=== PATIENT | female | born 1985 | race Two or more races ===

== ENCOUNTER 2024-02-26 22:50 | Inpatient (IN) | payer MEDICAID, OTHER ==
[~2024-02-26] VITALS: Ht 157.5 cm; Wt 64.6 kg
[2024-02-26 23:30] LABS: Eosinophils # (auto) 0.2 10 ^3/uL (0-0.8); Mean Corpuscular Hemoglobin 36.5 pg (28.0-32.0); Monocytes # (auto) 0.9 10 ^3/uL (0-1.3); Platelet Count (auto) 98 10^3/uL (140-450)
[2024-02-26 23:31] LABS: Basophils # (auto) 0 10 ^3/uL (0-0.2); Basophils % (auto) 0.4 % (0.0-2.0); Hematocrit 30.9 % (36.0-46.0); Hemoglobin 10.6 g/dL (12.2-16.2); Lymphocytes # (auto) 1.1 10 ^3/uL (0.4-5.4); Lymphocytes % (auto) 11.2 % (10.0-50.0); Mean Corpuscular Hgb Conc. 34.2 g/dL (32.0-36.0); Mean Corpuscular Volume 106.6 fL (80.0-100.0); Monocytes % (auto) 8.6 % (0.0-12.0); Neutrophils % (auto) 77.8 % (37.0-80.0); Red Cell Distribution Width 15.2 % (11.8-14.3); White Blood Cell 10.3 10^3/uL (4.4-10.8)
[2024-02-26 23:44] LABS: INR 1.59 (0.9-1.15); Partial Thromboplastin Time 33.4 SEC (24.5-34.5); Prothrombin Time 16.3 sec (9.3-11.8)
[2024-02-26 23:47] LABS: Alanine Aminotransferase 30 U/L (7-40); Albumin 3.1 g/dL (3.2-4.8); Alkaline Phosphatase 91 U/L (46-116); Anion Gap 4 (5-15); Aspartate Aminotransferase 104 U/L (13-40); BUN/Creatinine Ratio 10.8 (10.0-20.0); Bilirubin, Total 7.2 mg/dL (0.2-1.0); Blood Alcohol < 3.0 mg/dL (<10); Blood Urea Nitrogen 8 mg/dL (9-23); Carbon Dioxide 28 mmol/L (20-31); Chloride 106 mmol/L (98-107); Glucose 120 mg/dL (74-106); Sodium 138 mmol/L (136-145); Total Protein 7.2 g/dL (5.7-8.2)
[2024-02-27] MEDS: ONDANSETRON HCL 4 MG/2 ML VIAL IV ONE (00:59)
[2024-02-27] MEDS: PANTOPRAZOLE 40 MG/10 ML VIAL INJ IV ONE (01:01)
[2024-02-27] MEDS: MORPHINE SULFATE 4 MG/ML SYR/VIAL IV ONE (01:01)
[2024-02-27 08:59] LABS: Amphetamine Screen, Urine Neg (NEGATIVE); Benzodiazephine Screen, Urine Neg (NEGATIVE)
[2024-02-27 09:00] LABS: Barbiturate Scree,Urine Neg (NEGATIVE); Cannabinoid Screen, Urine Pos (NEGATIVE); Cocaine Screen, Urine Neg (NEGATIVE); Opiate Scree,Urine Pos (NEGATIVE); Phencyclidine Screen, Urine Neg (NEGATIVE)
[2024-02-27 09:36] LABS: Lymphocytes # (auto) 1.3 10 ^3/uL (0.4-5.4); Monocytes # (auto) 0.8 10 ^3/uL (0-1.3); Nucleated Red Blood Cells % 0.1 %
[2024-02-27 09:38] LABS: Basophils # (auto) 0 10 ^3/uL (0-0.2); Basophils % (auto) 0.4 % (0.0-2.0); Eosinophils # (auto) 0.2 10 ^3/uL (0-0.8); Eosinophils % (auto) 2.9 % (0.0-7.0); Hemoglobin 10.6 g/dL (12.2-16.2); Lymphocytes % (auto) 15.7 % (10.0-50.0); Mean Corpuscular Hemoglobin 37.7 pg (28.0-32.0); Mean Corpuscular Hgb Conc. 35.2 g/dL (32.0-36.0); Mean Corpuscular Volume 107.2 fL (80.0-100.0); Monocytes % (auto) 9.8 % (0.0-12.0); Neutrophils % (auto) 71.2 % (37.0-80.0); Platelet Count (auto) 90 10^3/uL (140-450); Red Cell Distribution Width 15.4 % (11.8-14.3); White Blood Cell 8.4 10^3/uL (4.4-10.8)
[2024-02-27 09:43] LABS: Chloride 106 mmol/L (98-107); Potassium 4.2 mmol/L (3.5-5.1); Sodium 138 mmol/L (136-145)
[2024-02-27 09:44] LABS: Anion Gap 4 (5-15); Calcium 8.8 mg/dL (8.7-10.4); Carbon Dioxide 28 mmol/L (20-31)
[2024-02-27 09:49] LABS: BUN/Creatinine Ratio 9.8 (10.0-20.0); Blood Urea Nitrogen 6 mg/dL (9-23); Glucose 83 mg/dL (74-106)
[2024-02-27] MEDS: PANTOPRAZOLE 40 MG/10 ML VIAL INJ IV SCH (10:19)
[2024-02-27] MEDS: SODIUM CHLORIDE 0.9% 1,000 ML IV SCH (11:51)
[2024-02-27] MEDS: SODIUM CHLORIDE 0.9% 1,000 ML IV ONE (11:51)
[2024-02-27] MEDS: ALBUMIN 25% 50 ML IV ONE (11:52)
[2024-02-27] MEDS: HYDROCORTISONE ACET 25 MG RECTAL SUPP PR ONE (14:09)
[2024-02-27] MEDS: DOCUSATE SOD 100 MG CAP PO ONE (14:09)
[2024-02-27] MEDS: MORPHINE SULFATE INJ 2 MG/ml SYRG IV PRN (14:50)
[2024-02-27] MEDS: ONDANSETRON HCL 4 MG/2 ML VIAL IV PRN (14:50)
[2024-02-27 15:45] VITALS: PULSE 75; RESP 16; O2SAT 98
[2024-02-27 15:55] VITALS: BP 99/48; PULSE 75; TEMP 98.2; O2SAT 98
[2024-02-27 17:36] VITALS: BP 99/48; PULSE 75; RESP 16; TEMP 98.2; O2SAT 98
[2024-02-27 20:09] LABS: Body Fluid Red Blood Cells 223 CUMM (0-2000); Body Fluid White Blood Cells 233 CUMM (0-200)
[2024-02-27 20:10] LABS: Body Fluid Polymorphonuclear 5 % (0-25)
[2024-02-27 21:00] VITALS: BP 101/56; PULSE 75; RESP 19; TEMP 98.1; O2SAT 98
[2024-02-27] MEDS: HYDROCORTISONE ACET 25 MG RECTAL SUPP PR SCH (22:04)
[2024-02-28 05:00] VITALS: BP 100/54; PULSE 48; RESP 18; TEMP 97.8; O2SAT 100
[2024-02-28 09:26] VITALS: BP 103/59; PULSE 64; RESP 16; TEMP 98.2; O2SAT 96
[2024-02-28 11:07] LABS: Protein, Body Fluid 1.9 g/dL (.)
[2024-02-28 13:40] VITALS: BP 105/59; PULSE 77; RESP 16; TEMP 97.9; O2SAT 99
[2024-02-28] MEDS: LIDOCAINE HCL 5 % TOP OINT 35 GM TOP PRN (15:52)
[2024-02-28 17:00] VITALS: BP 102/60; PULSE 75; RESP 18; TEMP 97.8; O2SAT 98
[2024-02-28 21:58] VITALS: BP 97/58; PULSE 89; RESP 18; TEMP 98.3; O2SAT 99
[2024-02-29 01:15] VITALS: BP 102/55; PULSE 77; RESP 18; TEMP 98.1; O2SAT 98
[2024-02-29 05:22] VITALS: BP 93/51; PULSE 69; RESP 19; TEMP 98.3; O2SAT 96
[2024-02-29 09:00] VITALS: BP 104/61; PULSE 80; RESP 20; TEMP 98; O2SAT 100
[2024-02-29] MEDS ORDERED: LID35TP TOP (12:42)
[2024-02-29] MEDS ORDERED: HYD25RS PR (12:42)
[2024-02-29 13:00] VITALS: BP 138/61; PULSE 82; RESP 20; TEMP 98.2; O2SAT 99
[2024-02-29 14:31] VITALS: BP 93/62; PULSE 82; RESP 20; TEMP 98.2; O2SAT 99
== END 2024-02-29 15:42 | disposition home or self-care (01) | DRG 254 ==
LOC: ER 22:50 → EDBD 22:50 → OVERFLOW 02-27 08:45 → CENTRAL 02-27 15:22
PROVIDERS: ADMIT Internal Medicine; ATTEND Internal Medicine
PROC: 0W9G3ZZ Drainage of Peritoneal Cavity, Percutaneous Approach (ICD-10-PCS; principal; 2024-02-27)
DX: K64.8 Other hemorrhoids (principal); D68.9 Coagulation defect, unspecified; K76.6 Portal hypertension; K92.2 Gastrointestinal hemorrhage, unspecified; R18.8 Other ascites; K74.60 Unspecified cirrhosis of liver; F12.10 Cannabis abuse, uncomplicated; K59.00 Constipation, unspecified; Z79.899 Other long term (current) drug therapy
CPT/HCPCS: 36415; 49083; 76942; 80048; 80053; 80307; 80320; 82140; 83605; 83986; 84702; 85025; 85610; 85730; 87205; 89051; G0378; J2405; J2470

== ENCOUNTER 2024-03-01 12:44 | Inpatient (IN) | payer MEDICAID ==
[~2024-03-01] VITALS: Ht 157.5 cm; Wt 67.2 kg
[~2024-03-01 12:44] MED LIST: HYD25RS PR; LID35TP TOP
[2024-03-01 15:40] LABS: Basophils # (auto) 0.1 10 ^3/uL (0-0.2); Eosinophils % (auto) 1.5 % (0.0-7.0); Hemoglobin 11.4 g/dL (12.2-16.2); Lymphocytes # (auto) 1.1 10 ^3/uL (0.4-5.4); Red Cell Distribution Width 15.6 % (11.8-14.3)
[2024-03-01 15:42] LABS: Basophils % (auto) 0.5 % (0.0-2.0); Eosinophils # (auto) 0.2 10 ^3/uL (0-0.8); Lymphocytes % (auto) 10.5 % (10.0-50.0); Mean Corpuscular Hemoglobin 36.4 pg (28.0-32.0); Mean Corpuscular Hgb Conc. 33.6 g/dL (32.0-36.0); Mean Corpuscular Volume 108.2 fL (80.0-100.0); Monocytes # (auto) 0.7 10 ^3/uL (0-1.3); Monocytes % (auto) 6.8 % (0.0-12.0); Neutrophils # (auto) 8.3 10 ^3/uL (1.6-8.6); Neutrophils % (auto) 80.7 % (37.0-80.0); Nucleated Red Blood Cells % 0.4 %; Platelet Count (auto) 119 10^3/uL (140-450); Red Blood Cells 3.14 10^6/uL (4.0-5.20); White Blood Cell 10.3 10^3/uL (4.4-10.8)
[2024-03-01 15:59] LABS: Alanine Aminotransferase 34 U/L (7-40); Albumin 3.2 g/dL (3.2-4.8); Alkaline Phosphatase 87 U/L (46-116); Anion Gap 5 (5-15); Aspartate Aminotransferase 102 U/L (13-40); Calcium 9.3 mg/dL (8.7-10.4); Carbon Dioxide 26 mmol/L (20-31); Chloride 108 mmol/L (98-107); Glucose 93 mg/dL (74-106); Potassium 4.8 mmol/L (3.5-5.1); Sodium 139 mmol/L (136-145)
[2024-03-01 16:00] LABS: Bilirubin, Total 7.8 mg/dL (0.2-1.0); Total Protein 7.3 g/dL (5.7-8.2)
[2024-03-01 16:01] LABS: BUN/Creatinine Ratio 6.7 (10.0-20.0); Blood Urea Nitrogen < 5 mg/dL (9-23)
[2024-03-01 16:18] LABS: INR 1.57 (0.9-1.15); Partial Thromboplastin Time 31.9 SEC (24.5-34.5); Prothrombin Time 16.1 sec (9.3-11.8)
[2024-03-01 17:29] LABS: Urine Bacteria None Seen /hpf (None Seen)
[2024-03-01] MEDS ORDERED: ONDANSETRON HCL 4 MG/2 ML VIAL IV PRN (18:00)
[2024-03-01] MEDS ORDERED: MORPHINE SULFATE INJ 2 MG/ml SYRG IV PRN (18:00)
[2024-03-01 18:11] VITALS: PULSE 65; RESP 17; O2SAT 98
[2024-03-01 18:58] LABS: Urine Blood Negative /uL (Negative); Urine Clarity Clear (Clear); Urine Color Yellow (Yellow); Urine Mucus FEW (None Seen); Urine Protein, UAD Negative (Negative); Urine Specific Gravity 1.007 (1.001-1.035); Urine Urobilinogen 2 mg/dL (Negative); Urine WBC 1 /hpf (0 - 5)
[2024-03-01 20:00] VITALS: RESP 16
[2024-03-01 22:00] VITALS: BP 106/68; PULSE 74; RESP 16; TEMP 98.2; O2SAT 98
[2024-03-01] MEDS: DOCUSATE SOD 100 MG CAP PO SCH (22:13)
[2024-03-01 23:00] VITALS: BP 106/68; PULSE 74; RESP 16; TEMP 98.2
[2024-03-01] MEDS: HYDROcodone-ACET 5/325MG TAB PO PRN (23:31)
[2024-03-02] VITALS (7 sets, daily range): BP systolic 83–98; BP diastolic 47–66; PULSE 68–85; RESP 16–18; TEMP 97.5–98.5; O2SAT 95–100
[2024-03-02] MEDS ORDERED: SPIR50TA5 PO (00:05)
[2024-03-02] MEDS ORDERED: PROP1TAB51 PO (00:05)
[2024-03-02] MEDS ORDERED: OMEP20TA PO (00:05)
[2024-03-02] MEDS ORDERED: FURO40TA4 PO (00:05)
[2024-03-02] MEDS: FUROSEMIDE 20 MG/2 ML VIAL IV SCH (06:00)
[2024-03-02] MEDS: PANTOPRAZOLE 40 MG TAB PO SCH (06:19)
[2024-03-02 06:48] LABS: Basophils # (auto) 0 10 ^3/uL (0-0.2); Eosinophils # (auto) 0.2 10 ^3/uL (0-0.8); Hematocrit 29.7 % (36.0-46.0); Hemoglobin 10.3 g/dL (12.2-16.2); Lymphocytes # (auto) 1.2 10 ^3/uL (0.4-5.4); Monocytes # (auto) 0.7 10 ^3/uL (0-1.3); Nucleated Red Blood Cells % 0.2 %
[2024-03-02 06:54] LABS: Basophils % (auto) 0.6 % (0.0-2.0); Lymphocytes % (auto) 15.8 % (10.0-50.0); Mean Corpuscular Hemoglobin 37.1 pg (28.0-32.0); Mean Corpuscular Hgb Conc. 34.7 g/dL (32.0-36.0); Mean Corpuscular Volume 106.9 fL (80.0-100.0); Monocytes % (auto) 9.3 % (0.0-12.0); Neutrophils # (auto) 5.5 10 ^3/uL (1.6-8.6); Neutrophils % (auto) 71.3 % (37.0-80.0); Platelet Count (auto) 93 10^3/uL (140-450); Red Blood Cells 2.78 10^6/uL (4.0-5.20); Red Cell Distribution Width 15.2 % (11.8-14.3); White Blood Cell 7.8 10^3/uL (4.4-10.8)
[2024-03-02] MEDS: FUROSEMIDE 40 MG/4 ML VIAL IV SCH (18:00)
[2024-03-02] MEDS: HYDROCORTISONE ACET 25 MG RECTAL SUPP PR SCH (21:42)
[2024-03-03 01:00] VITALS: BP 83/50; PULSE 83; RESP 17; TEMP 98.1; O2SAT 96
[2024-03-03 04:49] LABS: Basophils # (auto) 0 10 ^3/uL (0-0.2); Basophils % (auto) 0.3 % (0.0-2.0); Eosinophils # (auto) 0.2 10 ^3/uL (0-0.8); Eosinophils % (auto) 2.7 % (0.0-7.0); Hematocrit 29.1 % (36.0-46.0); Lymphocytes # (auto) 1.1 10 ^3/uL (0.4-5.4); Lymphocytes % (auto) 15.4 % (10.0-50.0); Mean Corpuscular Hemoglobin 36.8 pg (28.0-32.0); Mean Corpuscular Hgb Conc. 34.3 g/dL (32.0-36.0); Mean Corpuscular Volume 107.1 fL (80.0-100.0); Monocytes # (auto) 0.7 10 ^3/uL (0-1.3); Monocytes % (auto) 9.7 % (0.0-12.0); Neutrophils % (auto) 71.9 % (37.0-80.0); Platelet Count (auto) 87 10^3/uL (140-450); Red Blood Cells 2.72 10^6/uL (4.0-5.20); Red Cell Distribution Width 15.7 % (11.8-14.3); White Blood Cell 6.9 10^3/uL (4.4-10.8)
[2024-03-03 05:00] VITALS: BP 87/54; PULSE 80; RESP 18; TEMP 98.2; O2SAT 97
[2024-03-03 05:08] LABS: Anion Gap 7 (5-15); Carbon Dioxide 27 mmol/L (20-31); Chloride 109 mmol/L (98-107); Potassium 3.8 mmol/L (3.5-5.1); Sodium 143 mmol/L (136-145)
[2024-03-03 05:10] LABS: Calcium 8.9 mg/dL (8.7-10.4)
[2024-03-03 05:14] LABS: Glucose 99 mg/dL (74-106)
[2024-03-03 05:22] LABS: BUN/Creatinine Ratio 7.5 (10.0-20.0); Blood Urea Nitrogen < 5 mg/dL (9-23)
[2024-03-03 08:00] VITALS: RESP 18
[2024-03-03 08:36] VITALS: BP 86/55; PULSE 66; RESP 17; TEMP 97.7; O2SAT 95
[2024-03-03 09:13] LABS: Folate (Folic Acid) 4.5 ng/mL (>5.38)
[2024-03-03] MEDS ORDERED: FURO1TAB31 PO (11:59)
[2024-03-03 12:58] VITALS: BP 102/67; PULSE 74; RESP 18; TEMP 97.7; O2SAT 98
[2024-03-03 13:00] VITALS: BP 102/67; PULSE 74; RESP 17; TEMP 97.9; O2SAT 98
[2024-03-03] MEDS: ERGOCALCIFEROL 50,000 UNIT(1.25MG) CAP PO SCH (13:10)
[2024-03-03 14:18] LABS: Body Fluid Polymorphonuclear 18 % (0-25); Body Fluid Red Blood Cells 81 CUMM (0-2000); Body Fluid White Blood Cells 243 CUMM (0-200)
[2024-03-04 13:06] LABS: Protein, Body Fluid 1.4 g/dL (.)
== END 2024-03-03 13:50 | disposition home or self-care (01) ==
LOC: ER 12:51 → WEST WING 17:50 → OVERFLOW 17:50 → WEST WING 21:34
PROVIDERS: ADMIT Internal Medicine; ATTEND Internal Medicine
PROC: 0W9G3ZZ Drainage of Peritoneal Cavity, Percutaneous Approach (ICD-10-PCS; principal; 2024-03-03)
DX: K74.60 Unspecified cirrhosis of liver (principal); D68.9 Coagulation defect, unspecified; K76.6 Portal hypertension; F12.10 Cannabis abuse, uncomplicated; R18.8 Other ascites; K75.81 Nonalcoholic steatohepatitis (NASH); D53.9 Nutritional anemia, unspecified; E80.6 Other disorders of bilirubin metabolism; K64.9 Unspecified hemorrhoids
CPT/HCPCS: 36415; 49083; 74176; 76700; 80048; 80053; 81001; 82140; 82306; 82607; 82746; 83986; 85025; 85610; 85730; 87081; 87205; 89051; G0378

== ENCOUNTER → 2024-06-15 | Outpatient (CLI) | payer MEDICAID ==
[~2024-06-15] MED LIST changes: +FURO1TAB31 PO; +FURO40TA4 PO; +OMEP20TA PO; +PROP1TAB51 PO; +SPIR50TA5 PO
[2024-06-15 12:57] LABS: Urine Bacteria None Seen /hpf (None Seen)
[2024-06-15 13:17] LABS: Basophils # (auto) 0 10 ^3/uL (0-0.2); Basophils % (auto) 0.4 % (0.0-2.0); Eosinophils # (auto) 0 10 ^3/uL (0-0.8); Eosinophils % (auto) 1.4 % (0.0-7.0); Hemoglobin 12.5 g/dL (12.2-16.2); Lymphocytes % (auto) 31.3 % (10.0-50.0); Mean Corpuscular Hgb Conc. 33.7 g/dL (32.0-36.0); Mean Corpuscular Volume 95.1 fL (80.0-100.0); Monocytes # (auto) 0.2 10 ^3/uL (0-1.3); Monocytes % (auto) 6.8 % (0.0-12.0); Neutrophils # (auto) 1.9 10 ^3/uL (1.6-8.6); Neutrophils % (auto) 60.1 % (37.0-80.0); Nucleated Red Blood Cells % 0.3 %; Platelet Count (auto) 77 10^3/uL (140-450); Red Blood Cells 3.89 10^6/uL (4.0-5.20); Red Cell Distribution Width 14.5 % (11.8-14.3); White Blood Cell 3.2 10^3/uL (4.4-10.8)
[2024-06-15 13:55] LABS: Urine Blood TRACE /uL (Negative); Urine Clarity Clear (Clear); Urine Color Yellow (Yellow); Urine Protein, UAD Negative (Negative); Urine Specific Gravity 1.017 (1.001-1.035); Urine Squamous Epithelial Cell FEW /hpf (<5); Urine Urobilinogen Normal (Negative); Urine WBC 1 /HPF (0-5); Urine pH 6.5 (5.0-9.0)
[2024-06-15 14:49] LABS: Alanine Aminotransferase 30 U/L (7-40); Alkaline Phosphatase 102 U/L (46-116); Anion Gap 9 (5-15); BUN/Creatinine Ratio 9.6 (10.0-20.0); Calcium 9.9 mg/dL (8.7-10.4); Carbon Dioxide 26 mmol/L (20-31); Glucose 91 mg/dL (74-106); LDL Cholesterol 92 mg/dL (< 100); Sodium 143 mmol/L (136-145); Triglycerides 69 mg/dL (< 150)
[2024-06-15 14:50] LABS: Cholesterol 155 mg/dL (< 200); HDL Cholesterol 44 mg/dL (40-59); Total Protein 7.6 g/dL (5.7-8.2)
[2024-06-15 14:52] LABS: Aspartate Aminotransferase 50 U/L (13-40); Bilirubin, Total 2.4 mg/dL (0.2-1.0); Blood Urea Nitrogen 7 mg/dL (9-23); Chloride 108 mmol/L (98-107)
== END | disposition home or self-care (01) ==
LOC: LAB 12:44
PROVIDERS: ATTEND Internal Medicine
DX: Z00.01 Encounter for general adult medical examination with abnormal findings (principal); K70.31 Alcoholic cirrhosis of liver with ascites; K64.9 Unspecified hemorrhoids; Z76.89 Persons encountering health services in other specified circumstances
CPT/HCPCS: 36415; 80053; 80061; 81001; 83036; 84439; 84443; 85025

== ENCOUNTER → 2024-06-18 | Outpatient (CLI) | payer MEDICAID ==
[2024-06-18 13:13] LABS: Alanine Aminotransferase 26 U/L (7-40); Albumin 3.7 g/dL (3.2-4.8); Alkaline Phosphatase 102 U/L (46-116); Anion Gap 4 (5-15); BUN/Creatinine Ratio 9.6 (10.0-20.0); Calcium 9.3 mg/dL (8.7-10.4); Carbon Dioxide 27 mmol/L (20-31); Glucose 82 mg/dL (74-106); Sodium 139 mmol/L (136-145)
[2024-06-18 13:14] LABS: Total Protein 7.2 g/dL (5.7-8.2)
[2024-06-18 13:15] LABS: Aspartate Aminotransferase 47 U/L (13-40); Bilirubin, Total 1.9 mg/dL (0.2-1.0); Blood Urea Nitrogen 7 mg/dL (9-23); Chloride 108 mmol/L (98-107)
== END | disposition home or self-care (01) ==
LOC: LAB 11:42
PROVIDERS: ATTEND Internal Medicine
DX: K70.30 Alcoholic cirrhosis of liver without ascites (principal); R74.01 Elevation of levels of liver transaminase levels
CPT/HCPCS: 36415; 80053

== ENCOUNTER 2025-04-12 09:07 | Day surgery (SDC) | payer MEDICAID ==
[2025-04-08 12:16] LABS: Hematocrit 41.1 % (36.0-46.0); Hemoglobin 13.8 g/dL (12.2-16.2); Mean Corpuscular Hemoglobin 29.4 pg (28.0-32.0); Mean Corpuscular Volume 87.8 fL (80.0-100.0); Nucleated Red Blood Cells % 0.1 %
[2025-04-08 12:27] LABS: INR 1.15 (0.9-1.15); Partial Thromboplastin Time 31.3 SEC (24.5-34.5); Prothrombin Time 12.0 sec (9.3-11.8)
[2025-04-08 12:35] LABS: Alanine Aminotransferase 26 U/L (7-40); Albumin 4.4 g/dL (3.2-4.8); Alkaline Phosphatase 66 U/L (46-116); Anion Gap 7 (5-15); BUN/Creatinine Ratio 8.2 (10.0-20.0); Carbon Dioxide 28 mmol/L (20-31); Glucose 97 mg/dL (74-106); Potassium 4.4 mmol/L (3.5-5.1); Sodium 143 mmol/L (136-145); Total Protein 7.6 g/dL (5.7-8.2)
[2025-04-08 12:48] LABS: Bilirubin, Total 1.7 mg/dL (0.2-1.0); Blood Urea Nitrogen 6 mg/dL (9-23); Chloride 108 mmol/L (98-107)
[~2025-04-12] VITALS: Ht 154.9 cm; Wt 54.4 kg
[~2025-04-12 09:07] MED LIST changes: -FURO1TAB31 PO; -FURO40TA4 PO; -HYD25RS PR; -LID35TP TOP; -OMEP20TA PO; +PANT40TA2 PO; -PROP1TAB51 PO; -SPIR50TA5 PO
[2025-04-12] MEDS ORDERED: SODIUM CHLORIDE LOCK 10 ML ONE (10:05)
[2025-04-12 11:37] VITALS: PULSE 76; RESP 21; O2SAT 99
[2025-04-12] MEDS: fentaNYL CITRATE 100 MCG/2 ML VL ONE (11:43)
[2025-04-12] MEDS: LIDOCAINE VISCOUS 2% 15ML UD ONE (11:43)
[2025-04-12] MEDS: MIDAZOLAM HCL 5 MG/ML-1ML VIAL ONE (11:43)
[2025-04-12] MEDS: diphenhydrAMINE HCL 50 MG/1 ML VL ONE (11:43)
[2025-04-12 11:58] VITALS: PULSE 58; RESP 18; TEMP 97.8; O2SAT 99
--- NOTE | 2025-04-12 12:11 | DVHOP2 ---
Operative Report DATE OF OPERATION: 04/12/25 PROCEDURE: Upper Endoscopy with a biopsy. PREOPERATIVE INDICATION: The patient is a 39 -year-old female undergoing endoscopy for epigastric pain and history of underlying alcoholic liver disease POSTOPERATIVE DIAGNOSES: 1. Patient had a 1 cm sliding-type hiatal hernia with grade a erosive esophagitis 2. There was trace prominence of the distal esophageal veins which flattened with insufflation and there were no clinically significant varices 3. [id number] gastritis with some hyperemia erythema involving the body and the antrum of the stomach 4. Otherwise normal examination up to the 2nd and 3rd part of the duodenal with good bile drainage and no active bleeding PROCEDURE PERFORMED BY: Fernando Collazo GI NURSE: Delmy SCOPE: Olympus videoendoscope. ASA CLASS: 2. PREOPERATIVE MEDICATIONS: Versed 5 mg, Fentanyl 100 mcg, Benadryl 50 mg I administered moderate sedation throughout this _9_ minutes procedure. An independent trained observer pushed medications at my direction, and monitored the patient's level of consciousness and physiological status throughout. PROCEDURE IN DETAIL: After obtaining an informed consent, the patient was placed on left lateral decubitus position. The patient was then sedated with the above medications. A bite block was placed between her teeth. The endoscope was then passed through the oropharynx, into the esophagus, and through the stomach and pylorus up to the second and third part of the duodenum. The endoscope was then withdrawn. The 2nd and 3rd part of the duodenal and the duodenal bulb were normal. Duodenal biopsies were obtained. There was good bile drainage The pre-pyloric area antrum and body showed mild gastritis with some hyperemia erythema. Gastric biopsies were obtained. On retroflexion the fundus cardia and angularis were normal. The endoscope was then withdrawn into the distal esophagus Patient had a 1 cm sliding-type hiatal hernia with grade a erosive esophagitis. No significant esophageal varices There were trace prominence of the distal esophageal veins that flattened with insufflation The remaining distal and proximal esophagus and oropharynx were unremarkable The patient tolerated the procedure well without difficulty. COMPLICATIONS : None SPECIMENS: Duodenal biopsies Gastric biopsies DISPOSITION: Stable D/C to home PLAN: 1. Await for biopsy result 2. Will place pt on Protonix 40 mg p.o. q.a.m. 3. Trial of Carafate 1 g p.o. q.h.s. 4. DC aspirin NSAIDs smoking alcohol 5. Outpatient follow up with me in 4-6 weeks to review results and discuss further management 6. Resume GI soft diet advance as tolerated FERNANDO COLLAZO MD Apr 12, 2025 12:11
[2025-04-12 12:45] VITALS: BP 108/66; PULSE 51; RESP 13; O2SAT 100
== END 2025-04-12 13:02 | disposition home or self-care (01) ==
LOC: GI 09:07
PROVIDERS: ATTEND Internal Medicine Gastroenterology
DX: R10.13 Epigastric pain (principal); K70.9 Alcoholic liver disease, unspecified; K29.50 Unspecified chronic gastritis without bleeding; K22.10 Ulcer of esophagus without bleeding; K44.9 Diaphragmatic hernia without obstruction or gangrene; K31.89 Other diseases of stomach and duodenum; Z79.899 Other long term (current) drug therapy
CPT/HCPCS: 36415; 43239; 80053; 81025; 85025; 85610; 85730; 88305; 88313; 88342; J1200; J2250; J3010; J7030; 99152